=== PATIENT | female | born 1965 | race Caucasian/White ===

== ENCOUNTER → 2017-02-09 | Outpatient (CLI) | payer BC ==
--- NOTE | 2017-02-09 18:14 | PCVCIMAG ---
APPROVED REPORT Study performed: 02/09/2017 15:31:37 EXAM: Comprehensive 2D, Doppler, and color-flow Echocardiogram Status: routine BSA: 2.10 HR: 75 bpmBP: 112/70 mmHg Rhythm: NSR Other Information Study Quality: Technically Limited Technically limited study due to Breast implants. Indications Hyperlipidemia. Chest Pain 2D Dimensions LVEF(%): 64.99 (>50%) IVSd: 9.29 (7-11mm)LVOT Diam: 21.24 (18-24mm) LVDd: 45.11 mm PWd: 7.82 (7-11mm)Ascending Ao: 31.27 (22-36mm) LVDs: 29.13 (25-40mm) Left Atrium: 33.89 (27-40mm) Aortic Root: 27.03 mm Angel's LVEF: 64.99 % Mitral Valve E/A Ratio: 1.6 MV Decel. Time: 143.90 ms MV E Max Jonathan.: 0.61 m/s MV A Jonathan.: 0.37 m/s Pulmonary Valve PV Peak Gr.: 1.86 mmHg Left Ventricle The left ventricle is normal size. There is normal LV segmental wall motion. There is normal left ventricular wall thickness. Left ventricular systolic function is normal. The left ventricular ejection fraction is within the normal range. LVEF is 60-65%. This study is not technically sufficient to allow evaluation of the LV diastolic function. Right Ventricle The right ventricle is normal size. The right ventricular systolic function is normal. Atria The left atrium size is normal. The right atrium size is normal. Aortic Valve The aortic valve is normal in structure. No aortic regurgitation is present. There is no aortic valvular stenosis. Mitral Valve The mitral valve is normal in structure. There is no mitral valve regurgitation noted. No evidence of mitral valve stenosis. Tricuspid Valve The tricuspid valve is normal in structure. There is no tricuspid valve regurgitation noted. Pulmonic Valve The pulmonary valve is normal in structure. There is no pulmonic valvular regurgitation. Great Vessels The aortic root is normal in size. IVC is normal in size and collapses with >50% inspiration Pericardium There is no pericardial effusion. <Conclusion> This study has limited apical windows. Left ventricular systolic function is normal. The left ventricular ejection fraction is within the normal range. LVEF is 60-65%. The left atrium size is normal. The right atrium size is normal. There is no aortic valvular stenosis. There is no tricuspid valve regurgitation noted. There is no pericardial effusion.
== END | disposition home or self-care (01) ==
LOC: PCVCIMAG 15:10
PROVIDERS: ATTEND Internal Medicine Cardiovascular Disease
DX: I10 Essential (primary) hypertension (principal); E78.00 Pure hypercholesterolemia, unspecified; R07.9 Chest pain, unspecified
CPT/HCPCS: 93017; 93306

== ENCOUNTER → 2018-03-28 | Outpatient (CLI) | payer BC ==
--- NOTE | 2018-03-28 15:49 | PCVCIMAG ---
EXAM: BILATERAL CAROTID DUPLEX INDICATION: Carotid Occlusive Disease. FINDINGS: Doppler Measurements (centimeters per second): RIGHT: Peak CCA-75, Peak ECA-124, Diastolic ICA-37, Peak ICA-81, ICA/CCA Ratio-1.1. LEFT: Peak CCA-81, Peak ECA-105, Diastolic ICA-46, Peak ICA-105, ICA/CCA Ratio-1.3. RIGHT CAROTID: The carotid bulb has no significant plaque. The proximal internal carotid artery shows no significant stenosis. The common carotid artery shows no significant stenosis. The external carotid artery shows no significant stenosis. LEFT CAROTID: The carotid bulb has no significant plaque. The proximal internal carotid artery shows no significant stenosis. The common carotid artery shows no significant stenosis. The external carotid artery shows no significant stenosis. Antegrade flow in both vertebral arteries. IMPRESSION: No significant stenosis of the right internal carotid artery with no significant plaque. No significant stenosis of the left internal carotid artery with no significant plaque. LOC:[place] [id number]
== END | disposition home or self-care (01) ==
LOC: PCVCIMAG 15:14
PROVIDERS: ATTEND Internal Medicine Cardiovascular Disease
DX: I65.23 Occlusion and stenosis of bilateral carotid arteries (principal)
CPT/HCPCS: 93880